=== PATIENT | female | born 1945 | race Caucasian/White ===

== ENCOUNTER 2016-08-30 22:33 | Inpatient (IN) | payer MEDICARE, MEDICAID ==
[~2016-08-30] VITALS: Ht 162.6 cm; Wt 45.5 kg
[2016-08-30] MEDS ORDERED: ACETAMINOPHEN 650 MG SUPP RECTAL ONE (23:53)
[2016-08-31] MEDS ORDERED: SODIUM CHLORIDE 0.9% 100 ML IV ONE (02:05)
[2016-08-31] MEDS ORDERED: CEFTRIAXONE 1 GM VIAL ONE (02:05)
[2016-08-31] MEDS ORDERED: SODIUM CHLORIDE 0.9% 1,000 ML ONE (02:05)
[2016-08-31] MEDS ORDERED: BISACODYL EC 5 MG TAB PO PRN (03:20)
[2016-08-31] MEDS ORDERED: ACETAMINOPHEN 325 MG TAB PO PRN (03:20)
[2016-08-31] MEDS ORDERED: ONDANSETRON 4 MG VIAL IV PRN (03:20)
[2016-08-31] MEDS ORDERED: MAG HYDROX 30 ML UDC PO PRN (03:20)
[2016-08-31] MEDS ORDERED: TEMAZEPAM 7.5 MG CAP PO PRN (03:20)
[2016-08-31] MEDS ORDERED: ALU/MAG/SIM 30 ML UDC PO PRN (03:20)
[2016-08-31] MEDS ORDERED: SALINE FLUSH 10 ML FLUSH PRN (03:20)
[2016-08-31] MEDS ORDERED: BISACODYL 10 MG SUPP RECTAL PRN (03:20)
[2016-08-31] MEDS ORDERED: PHARMACY TO DOSE LEVAQUIN IV SCH (03:20)
[2016-08-31] MEDS ORDERED: LEVOFLOXACIN 750 MG/150 ML 150 ML IV SCH (05:00)
[2016-08-31 05:33] VITALS: BP_SYST 106; BP_SYST 108; RESP 18; TEMP 96.5
[2016-08-31] MEDS: SODIUM CHLORIDE 0.9% FLUSH BAG 500 ML IV SCH (06:00)
[2016-08-31] MEDS: SODIUM CHLORIDE 0.9% 1,000 ML IV SCH ×2 (06:06→16:10)
[2016-08-31 06:42] VITALS: BMI 17.2
[2016-08-31] MEDS: SALINE FLUSH 10 ML FLUSH SCH ×2 (08:00→20:48)
[2016-08-31 08:08] VITALS: Ht 162.6 cm; Wt 45.5 kg
[2016-08-31] MEDS: ENOXAPARIN 40 MG/0.4 ML SYR SUBQ SCH (08:22)
[2016-08-31 09:18] VITALS: BP_SYST 106; RESP 18; TEMP 96
[2016-08-31] MEDS ORDERED: KCL CR 20 MEQ TAB PO ONE ×2 (11:10→21:00)
[2016-08-31] MEDS: DUONEB INH SCH ×4 (11:17→23:00)
[2016-08-31 13:59] VITALS: RESP 20
[2016-08-31 16:55] VITALS: BP_SYST 112; RESP 18; TEMP 96.3
[2016-08-31 20:10] VITALS: BP_SYST 160; RESP 22; TEMP 101.3
[2016-08-31] MEDS ORDERED: MORPHINE 2 MG/ML SYR IV PRN (21:00)
[2016-08-31 23:40] VITALS: BP_SYST 96; RESP 20; TEMP 98
[2016-09-01 03:53] VITALS: BP_SYST 104; RESP 16; TEMP 96.2
[2016-09-01] MEDS: SODIUM CHLORIDE 0.9% FLUSH BAG 500 ML IV SCH (06:00)
[2016-09-01] MEDS: DUONEB INH SCH ×4 (07:47→23:19)
[2016-09-01] MEDS: SALINE FLUSH 10 ML FLUSH SCH ×2 (08:00→20:00)
[2016-09-01] MEDS ORDERED: KCL CR 20 MEQ TAB PO ONE (08:00)
[2016-09-01 08:02] VITALS: BP_SYST 122; RESP 16; TEMP 96.6
[2016-09-01] MEDS ORDERED: TEMAZEPAM 15 MG CAP PO PRN (08:15)
[2016-09-01] MEDS ORDERED: LORAZEPAM 0.5 MG TAB PO PRN (08:15)
[2016-09-01] MEDS ORDERED: BISACODYL 10 MG SUPP RECTAL PRN (08:15)
[2016-09-01] MEDS ORDERED: POLYETHYLENE GLYCOL 17 GM PACKET PO PRN (08:15)
[2016-09-01] MEDS: DOCUSATE SOD 100 MG CAP PO SCH ×2 (09:00→21:20)
[2016-09-01] MEDS: BACLOFEN 10 MG TAB PO SCH ×2 (10:01→21:20)
[2016-09-01] MEDS: CEFTRIAXONE 1 GM in SODIUM CHLORIDE 0.9% 50 ML IV SCH (10:01)
[2016-09-01] MEDS: MULTIVITS/MINERALS (THERAGRAN M) TAB PO SCH (10:01)
[2016-09-01] MEDS: PAROXETINE HCL 20 MG TAB PO SCH (10:01)
[2016-09-01] MEDS: CYANOCOBA 500 MCG TAB PO SCH (10:02)
[2016-09-01] MEDS: CHOLECALCIFEROL 1,000 UNITS TAB PO SCH (10:02)
[2016-09-01] MEDS: ENOXAPARIN 40 MG/0.4 ML SYR SUBQ SCH (10:03)
[2016-09-01 10:53] VITALS: BP_SYST 104; RESP 18; TEMP 97.3
[2016-09-01] MEDS: SODIUM CHLORIDE 0.9% 1,000 ML IV SCH (14:02)
[2016-09-01 14:57] VITALS: BP_SYST 120; RESP 18; TEMP 99.2
[2016-09-01 20:37] VITALS: BP_SYST 124; RESP 18; TEMP 98.8
[2016-09-01 23:48] VITALS: BP_SYST 124; RESP 16; TEMP 98.4
[2016-09-02 04:07] VITALS: BP_SYST 116; RESP 16; TEMP 98.3
[2016-09-02] MEDS: SODIUM CHLORIDE 0.9% FLUSH BAG 500 ML IV SCH (05:28)
[2016-09-02] MEDS: DUONEB INH SCH ×4 (07:35→22:31)
[2016-09-02 08:10] VITALS: BP_SYST 114; RESP 18; TEMP 96.6
[2016-09-02] MEDS: PAROXETINE HCL 20 MG TAB PO SCH (09:31)
[2016-09-02] MEDS: CYANOCOBA 500 MCG TAB PO SCH (09:31)
[2016-09-02] MEDS: BACLOFEN 10 MG TAB PO SCH ×2 (09:31→21:03)
[2016-09-02] MEDS: SALINE FLUSH 10 ML FLUSH SCH ×2 (09:31→21:04)
[2016-09-02] MEDS: CHOLECALCIFEROL 1,000 UNITS TAB PO SCH (09:31)
[2016-09-02] MEDS: MULTIVITS/MINERALS (THERAGRAN M) TAB PO SCH (09:31)
[2016-09-02] MEDS: ENOXAPARIN 40 MG/0.4 ML SYR SUBQ SCH (09:32)
[2016-09-02] MEDS ORDERED: MISSING DOSE XX ONE (09:40)
[2016-09-02] MEDS: SODIUM CHLORIDE 0.9% 1,000 ML IV SCH (09:48)
[2016-09-02] MEDS: DOCUSATE SOD 100 MG CAP PO SCH ×2 (10:31→21:00)
[2016-09-02] MEDS: CEFTRIAXONE 1 GM in SODIUM CHLORIDE 0.9% 50 ML IV SCH (10:38)
[2016-09-02 11:27] VITALS: BP_SYST 120; RESP 18; TEMP 96.7
[2016-09-02 15:36] VITALS: BP_SYST 112; RESP 18; TEMP 98.3
[2016-09-02] MEDS: DAKIN'S 0.0625% 480 ML TOPICAL SCH ×2 (16:00→21:00)
[2016-09-02 19:48] VITALS: BP_SYST 106; RESP 20; TEMP 99.3
[2016-09-02 23:00] VITALS: BP_SYST 132; RESP 18; TEMP 98.9
[2016-09-03] MEDS ORDERED: MISSING DOSE XX ONE ×2 (00:10→08:45)
[2016-09-03 03:06] VITALS: BP_SYST 104; RESP 18; TEMP 97.4
[2016-09-03] MEDS: SODIUM CHLORIDE 0.9% FLUSH BAG 500 ML IV SCH (05:31)
[2016-09-03] MEDS: DUONEB INH SCH (07:42)
[2016-09-03 08:20] VITALS: BP_SYST 116; RESP 18; TEMP 98.3
[2016-09-03] MEDS: MULTIVITS/MINERALS (THERAGRAN M) TAB PO SCH (08:31)
[2016-09-03] MEDS: CYANOCOBA 500 MCG TAB PO SCH (08:31)
[2016-09-03] MEDS: CEFTRIAXONE 1 GM in SODIUM CHLORIDE 0.9% 50 ML IV SCH (08:31)
[2016-09-03] MEDS: DOCUSATE SOD 100 MG CAP PO SCH (08:31)
[2016-09-03] MEDS: PAROXETINE HCL 20 MG TAB PO SCH (08:31)
[2016-09-03] MEDS: CHOLECALCIFEROL 1,000 UNITS TAB PO SCH (08:31)
[2016-09-03] MEDS: BACLOFEN 10 MG TAB PO SCH (08:31)
[2016-09-03] MEDS: SALINE FLUSH 10 ML FLUSH SCH (08:32)
[2016-09-03] MEDS: DAKIN'S 0.0625% 480 ML TOPICAL SCH (08:32)
[2016-09-03 10:59] VITALS: BP_SYST 116; RESP 18; TEMP 98.3
[2016-09-03 12:10] VITALS: BP_SYST 112; RESP 18
== END 2016-09-03 14:04 | disposition home health service (06) | DRG 698 ==
LOC: ER 22:33 → EMR 08-31 02:06 → ENPENDDIS 08-31 02:06 → 4THW 08-31 04:36
PROVIDERS: ADMIT Family Medicine; ATTEND Family Medicine
CPT/HCPCS: 71010; 94640; 94799; 96374; 99223; 99233; 99239